=== PATIENT | male | born 1935 | race Caucasian/White ===

== ENCOUNTER 2016-12-06 05:53 | Observation (INO) | payer MEDICARE ==
--- NOTE | ~2016-12-06 | HP ---
History And Physical [place] [id number] [place]. [address] NAME: SALO NAGY JR : 34 STATUS : ADM Efrem PAT#: [id number] AGE: 81 ADM/REG DATE : 12/06/16 MR#: [id number] REPORT SERV DATE: 12/06/16 DICTATED BY: DIVYA WHELAN DATE: 12/06/16 REPORT STATUS : Draft TRANSCRIBED BY: MODJada DATE: 12/06/16 DATE OF ADMISSION: 12/06/2016 MAINTENANCE AND CUSTODIAN SUPERVISOR: Rizwan Sharif M.D. NEPHROLOGY: Jasvir Bell M.D. CHIEF COMPLAINT: Chest pain and bilateral arm pain. HISTORY OF PRESENT ILLNESS: A very pleasant 81-year-old white gentleman with known history of CAD, status post history of CT and CABG x4 with a 4/4 vein grafts patent by cath on 2012. The patient also has ischemic cardiomyopathy with most recent EF of 30% and AICD in place for episode of VT, VFib, on sotalol. The patient states that this morning around 0100 hours, he awoke with some left-sided sharp chest pain that radiated to both of his arms. He reports two to three events occurring this morning and eventually resolved with two sublingual nitroglycerin. He describes the chest pain as "sharp and transient in nature." He states his face felt "tight" and his arms felt "warm." He denies any change in his shortness of breath, which is chronic and no change from his baseline. Denies nausea, diaphoresis, dizziness, or belching. At its most intense, he rated the chest pain an 8/10. At the time of interview in the [facility], he rates it a 3/10 and states it lasted "seconds in duration." He did have hamburger and raw onion for dinner last night. The patient confirms a personal history of one heart attack. Denies history of stroke, DVT, or pulmonary embolus. The patient was seen at [facility] on 09/2016 for a bout of pneumonia. Denies any palpitations. No shocks delivered from his AICD. No syncopal episodes. Denies PND or orthopnea. Of note, the patient is in chronic atrial fibrillation, followed at [facility] for INR most recently at 1.6 per patient's report with a recent increase in his Jantoven to 5 mg daily two weeks ago. The patient states he has an INR check this coming Wednesday, which will be changed to his followup visit. The patient recently was seen by Nephrology and the patient reports that his carvedilol was decreased to 6.25 twice daily due to hypotension. He reports his systolic readings have been 95-106 and he feels better on the reduced dose of carvedilol. PAST MEDICAL HISTORY: 1. CAD. a. History of CT. b. ICM, EF 30% by echo, 09/2016. c. VFib, ventricular tachycardia with AICD. d. [place] [address] Meadows with 4/4 grafts patent by cath, 2012. 2. Hypertension. 3. Dyslipidemia. 4. AODM. History And Physical [address] [address] NAME: SALO NAGY JR : 34 STATUS : ADM Efrem PAT#: [id number] AGE: 81 ADM/REG DATE : 12/06/16 MR#: [id number] REPORT SERV DATE: 12/06/16 DICTATED BY: DIVYA WHELAN DATE: 12/06/16 REPORT STATUS : Draft TRANSCRIBED BY: SHANELLE DATE: 12/06/16 5. Chronic atrial fibrillation, on sotalol and Coumadin. 6. Sleep apnea, compliant with BiPAP. 7. COPD. 8. CKD stage 4, followed by [facility]. 9. Chronic systolic and diastolic heart failure, on Bumex. 10.Remote tobacco abuse. 11.GERD. PAST SURGICAL HISTORY: 1. CABG x4 in 1998. 2. AICD in 2013 for VFib, ventricular tachycardia. 3. Right total knee replacement. 4. Cholecystectomy. 5. Cervical neck surgery. 6. Right rotator cuff. SOCIAL HISTORY: He is . One son present at bedside. He is retired. Does not have a structured exercise routine. Quit smoking 40 years ago. Prior to that, smoked for approximately 20-30 years. Denies alcohol or illicits. FAMILY HISTORY: Mother at the age of 82 with a history of "heart problems." Father with a heart attack in his 50s, at the age of 67. Two brothers of heart attacks at 50 and 53. REVIEW OF SYSTEMS: A fourteen-point review of systems performed, significant for HPI including home systolic blood pressure of 95-110 and home blood sugar of 100. The patient uses 3 L nasal cannula with activity and compliant with BiPAP and 3 L nasal cannula at night. ALLERGIES: PENICILLIN, RASH; TETANUS VACCINE, RASH; MORPHINE, NAUSEA AND VOMITING. HOME MEDICINES: Zyloprim 100 mg daily, aspirin 81 mg daily, Bumex 1 mg twice daily, carvedilol 6.25 mg twice daily, vitamin D 1000 units daily, vitamin B12 1000 mg daily, Glucotrol 10 mg twice daily, isosorbide dinitrate 30 mg daily, Dulera two puffs twice daily, Protonix 40 mg daily, pravastatin 20 mg daily, Zantac 75 mg twice daily, sotalol 40 mg twice daily, Flomax 0.4 mg twice daily, and Jantoven 5 mg nightly. PHYSICAL EXAMINATION: VITAL SIGNS: Blood pressure 145/88, pulse 103, respirations 26, temperature 98.1, O2 saturation 96% on 3 L. Height 6 feet 1 inch, weight 259 pounds. BMI 34. GENERAL: Cooperative, in no apparent distress. HEENT: Pupils 2 mm, sclerae nonicteric. Nares patent. Moist mucous membranes. No xanthelasma. NECK: Trachea midline, no thyromegaly. No JVD. No bruits. LYMPH: No cervical lymphadenopathy. No supraclavicular lymphadenopathy. RESPIRATORY: Diminished left base. Otherwise, clear. CARDIOVASCULAR: Irregularly irregular rate with a variable S1 and S2. History And Physical [address] [address] NAME: SALO NAGY : 34 STATUS : ADM Efrem PAT#: [id number] AGE: 81 ADM/REG DATE : 12/06/16 MR#: [id number] REPORT SERV DATE: 12/06/16 DICTATED BY: DIVYA WHELAN DATE: 12/06/16 REPORT STATUS : Draft TRANSCRIBED BY: SHANELLE DATE: 12/06/16 EXTREMITIES: Trace ankle edema, right greater than left. ABDOMEN: Soft, nontender, nondistended, normal bowel sounds auscultated throughout. No organomegaly. SKIN: Warm, dry extremities. No pallor, or cyanosis. PSYCHIATRIC: Appropriate affect. Alert, oriented x3. LABORATORY DATA: Troponin 0.02 and 0.03, potassium 4.2, BUN 28, creatinine 2.23 (baseline 2.6). Glucose 136, magnesium 1.7. WBC 7.3, hemoglobin 10.2, hematocrit 31.6, and platelet count 180,000. PT 18.0. INR 1.5. EKG, atrial fibrillation with PVC (poor quality baseline tracing). Echo, 09/2015: EF 30%. Dilated left chambers. Dilated left atrium. Mild MR and TR. Mild aortic stenosis. MPI, 04/2015: No ischemia, fixed inferior and inferolateral defect, EF 31%. Cath, 03/2013 (Negus): Three-vessel craig CAD with 4/4 vein grafts patent, EF 30%. ASSESSMENT AND PLAN: 1. Chest pain in patient with multiple risk factors. Second troponin, negative. Electrocardiogram appears stable with no ST elevation. The patient will be held n.p.o. after midnight tonight for myocardial perfusion imaging in the morning and discharged home with negative study. If anything suggestive of ischemia or further cardiac testing required, a Nephrology consult would be necessary prior to any exposure to dye. The patient will be asked to follow up with primary care physician in one to two weeks and Dr. Sharif in two weeks with an INR check at that time. 2. Coronary artery disease. Continue home medications. Hold Imdur on December 07 for myocardial perfusion imaging and resume after myocardial perfusion imaging. 3. Chronic atrial fibrillation, on sotalol and Jantoven. Continue Jantoven 5 mg daily, a daily PT and INR. Consider increasing dose at discharge, if no arteriogram required and arrange INR check in two weeks with Dr. Sharif's office visit. 4. Hypertension. Monitor blood pressure and continue home medications. 5. Dyslipidemia. Continue statin. 6. Adult-onset diabetes mellitus, level 1 sliding scale correction as warranted. 7. Chronic kidney disease stage 4. Recheck basic metabolic profile in the morning. Nephrology consult if catheterization required. BRITTANY/SHANELLE Divya Whelan, MSN, COAGULATING OPERATOR-BC / [id number] History And Physical [place] [address] [place]. [address] NAME: SALO NAGY JR : 34 STATUS : ADM Eferm PAT#: [id number] AGE: 81 ADM/REG DATE : 12/06/16 MR#: [id number] REPORT SERV DATE: 12/06/16 DICTATED BY: DIVYA WHELAN DATE: 12/06/16 REPORT STATUS : Draft TRANSCRIBED BY: MARGEL DATE: 12/06/16 CC: Divya Whelan, MSN, COAGULATING OPERATOR-BC Mark Jarquin M.D.
[2016-12-06 04:03] LABS: BASOPHILS 0.8 %; BASOPHILS ABSOLUTE 0.06 10/3/uL (0.0-0.16); EOSINOPHILS 0.4 %; EOSINOPHILS ABSOLUTE 0.03 10/3/uL (0.0-0.53); HEMOGLOBIN 10.2 g/dL (13.6-17.8); IMMATURE GRANULOCYTES 0.5 %; IMMATURE GRANULOCYTES ABSOLUTE 0.04 10/3/uL (0.0-0.11); LYMPHOCYTES 28.7 %; LYMPHOCYTES ABSOLUTE 2.11 10/3/uL (0.67-4.30); MEAN CORPUS HGB CONC 32.3 g/dL (32.0-36.0); MEAN CORPUSCULAR HEMOGLOB 30.1 pg (26.0-34.0); MEAN CORPUSCULAR VOLUME 93.2 fL (80-100); MEAN PLATELET VOLUME 9.6 fL (9.2-13.0); MONOCYTES 11.3 %; MONOCYTES ABSOLUTE 0.83 10/3/uL (0.21-1.20); NEUTROPHILS 58.3 %; NEUTROPHILS ABSOLUTE 4.27 10/3/uL (2.02-8.40); RBC DISTRIBUTION WIDTH 15.2 % (12.0-16.0); RED CELL COUNT 3.39 10/6/uL (4.7-6.1)
[2016-12-06 04:08] LABS: ER CBC TAT 0 Hrs 12 Mins; HEMATOCRIT 31.6 % (40.0-51.0); MANUAL DIFF NO %; PLATELET COUNT 180 10/3/uL (150-400); WHITE BLOOD CELLS 7.3 10/3/uL (4.5-10.5)
[2016-12-06 04:18] LABS: CALCIUM, SERUM 8.5 MG/DL (8.5-10.4); CHEST PAIN PROFILE TAT 0 Hrs 22 Mins; CHLORIDE, SERUM 104 MMOL/L (96-112); CO2 (CARBON DIOXIDE) 26 MMOL/L (24-34); POTASSIUM, SERUM 4.2 MMOL/L (3.5-5.3); SODIUM, SERUM 140 MMOL/L (135-148); TROPONIN I 0.02 NG/ML (<0.05)
[2016-12-06 04:22] LABS: BUN (BLOOD UREA NITROGEN) 28 MG/DL (6-23); CREATININE 2.23 MG/DL (0.70-1.30); GFR AFRICAN AMERICAN 31 ML/MIN (>=60); GFR NON AFRICAN AMERICAN 26 ML/MIN (>=60); GLUCOSE, SERUM 136 MG/DL (60-99)
[2016-12-06 04:44] LABS: INTERNATIONAL NORMAL RATI 1.5 UNITS (-); PARTIAL THROMBO TIME 37.7 SEC (22.5-37.2)
[~2016-12-06 05:53] MED LIST: ADOXA PAK1 MG/150 M PO; ASA5GR PO; ASAB PO; ASABAYER PO; ATEN25 PO; ATEN50 PO; BACTROINT TOP; BENTYL10 PO; BETAPACE80 PO; BL FLAX SEED1000 MG OR; BUM1 PO; CLARIT10 PO; COREG12 PO; COREG25 PO; COUMADIN10 MG PO; COUMADIN4 MG PO; CYANO1000T PO; DEMA20 PO; DIOVAN HCT160 MG/25 PO; DULERA 100 MCG/13 GM INH; FERROUS SULF325 M1 PO; FISH-EPA1000 MG PO; FLOMAX4 PO; FLONASE NAS; GLUCOTRO10 PO; GLUCPH PO; HUMI PO; HYDROCHLOROT25 MG PO; IMDUR30 PO; IRON160 MG PO; ISOSORB DIN30 MG PO; ISOSORBIDE PO; JANTOVEN10 MG PO; KLOR-CON M2020 MEQ PO; L40 PO; LEVEMIR SC; LIPITOR10 PO; LOVENOX120 SC; MONODOX100 MG PO; NITROSTAT0.4 MG SL; P10 PO; PRAVAC PO; PREVALITE4 G1 PO; PRILOSEC OTC20 MG PO; PRIN5 PO; PROTONIX PO; PROVHFA INH; PULRESP1 INH; QUESLITE PO; QUESTRAN4 GM PO; SILVADENE1 % TOP; T PO; TAMIFLU PO; VITAMIN D31000 UNIT PO; Z100 PO; ZANTAC 75 PO; ZANTAC150 MG PO; [UNRECOGNIZED DRUG - OTHER]; [UNRECOGNIZED DRUG - OTHER] PO
[2016-12-06] MEDS ORDERED: BUM1 PO (06:00)
[2016-12-06] MEDS ORDERED: Z100 PO (06:00)
[2016-12-06] MEDS ORDERED: COREG12 PO (06:01)
[2016-12-06] MEDS ORDERED: FLOMAX4 PO (06:01)
[2016-12-06] MEDS ORDERED: ZANTAC150 MG PO (06:02)
[2016-12-06] MEDS ORDERED: BETAPACE80 PO (06:02)
[2016-12-06] MEDS ORDERED: JANTOVEN5 MG PO (06:03)
[2016-12-06] MEDS ORDERED: GLUCOTRO10 PO (06:03)
[2016-12-06] MEDS ORDERED: ISOSORB DIN30 MG PO (06:03)
[2016-12-06] MEDS ORDERED: ASAB PO (06:04)
[2016-12-06] MEDS ORDERED: PRAVAC PO (06:04)
[2016-12-06] MEDS ORDERED: VITAMIN B-121000 MC1 PO (06:05)
[2016-12-06] MEDS ORDERED: VITAMIN D31000 UNIT PO (06:05)
[2016-12-06] MEDS ORDERED: DULERA 100 MCG/13 GM INH (06:06)
[2016-12-06] MEDS ORDERED: PROTONIX PO (06:06)
[2016-12-07 04:32] LABS: INTERNATIONAL NORMAL RATI 1.5 UNITS (-); PROTIME (NOT ORD) 18.2 SEC (12.0-14.5)
[2016-12-07 04:41] LABS: BUN (BLOOD UREA NITROGEN) 26 MG/DL (6-23); CALCIUM, SERUM 8.9 MG/DL (8.5-10.4); CHLORIDE, SERUM 106 MMOL/L (96-112); CO2 (CARBON DIOXIDE) 29 MMOL/L (24-34); CREATININE 2.14 MG/DL (0.70-1.30); GFR AFRICAN AMERICAN 32 ML/MIN (>=60); GFR NON AFRICAN AMERICAN 28 ML/MIN (>=60); POTASSIUM, SERUM 4.4 MMOL/L (3.5-5.3); SODIUM, SERUM 142 MMOL/L (135-148)
[2016-12-07 04:44] LABS: GLUCOSE, SERUM 100 MG/DL (60-99)
[2016-12-07] MEDS ORDERED: JANTOVEN1 MG PO (13:03)
[2016-12-07] MEDS ORDERED: NITROSTAT0.4 MG SL (13:04)
[2016-12-25] MEDS ORDERED: CLARIT10 PO (12:32)
== END 2016-12-07 13:30 | disposition home or self-care (01) ==
LOC: ER 05:53 → CDU1 06:13
PROVIDERS: Clinical Nurse Specialist; Hospitalist
DX: R07.9 Chest pain, unspecified (principal); R05 Cough; I25.10 Atherosclerotic heart disease of native coronary artery without angina pectoris; I13.0 Hypertensive heart and chronic kidney disease with heart failure and stage 1 through stage 4 chronic kidney disease, or unspecified chronic kidney disease; E11.22 Type 2 diabetes mellitus with diabetic chronic kidney disease; I50.22 Chronic systolic (congestive) heart failure; E66.9 Obesity, unspecified; I48.2 Chronic atrial fibrillation; E78.5 Hyperlipidemia, unspecified; N18.4 Chronic kidney disease, stage 4 (severe); K21.9 Gastro-esophageal reflux disease without esophagitis; J44.9 Chronic obstructive pulmonary disease, unspecified; I25.2 Old myocardial infarction; M10.9 Gout, unspecified; D64.9 Anemia, unspecified; Z87.891 Personal history of nicotine dependence; Z88.0 Allergy status to penicillin; Z88.5 Allergy status to narcotic agent; Z88.8 Allergy status to other drugs, medicaments and biological substances; Z79.52 Long term (current) use of systemic steroids; Z79.899 Other long term (current) drug therapy; Z82.49 Family history of ischemic heart disease and other diseases of the circulatory system; Z95.810 Presence of automatic (implantable) cardiac defibrillator; Z98.890 Other specified postprocedural states; Z95.1 Presence of aortocoronary bypass graft; Z96.651 Presence of right artificial knee joint; Z90.49 Acquired absence of other specified parts of digestive tract; Z90.89 Acquired absence of other organs; Z68.33 Body mass index [BMI] 33.0-33.9, adult
CPT/HCPCS: 71020; 78452; 80048; 82962; 83735; 84484; 85025; 85610; 85730; 93005; 93017; 94640; 99285; A9270-GY; A9502; G0378; J0153

== ENCOUNTER 2016-12-31 08:18 | Day surgery (SDC) | payer MEDICARE ==
--- NOTE | ~2016-12-31 | EGD ---
EGD REPORT [facility] [address] [address] NAME: SALO NAGY JR : 34 STATUS : [facility]#: [id number] AGE: 81 ADM/REG DATE : 12/31/16 MR#: [id number] REPORT SERV DATE: 12/31/16 DICTATED BY: TAMANNA PEREIRA DATE: 12/31/16 REPORT STATUS : Draft [facility]ANS[facility]ED [facility]: [facility] DATE: 12/31/16 [facility] Patient Name: Salo Nagy Date of : 1935 Attending MD: TAMANNA PEREIRA MD Procedure Date No Time: 12/31/2016 Procedure: Upper GI endoscopy Indications: Iron deficiency anemia Referring MD: ROSA STEWART Medicines: Deep sedation was administered, Sedation Required Anesthesia Staff Assistance Complications: No immediate complications. Estimated blood loss: Minimal. Procedure: Pre-Anesthesia Assessment: - ASA Grade Assessment: IV - A patient with severe systemic disease that is a constant threat to life. After obtaining informed consent, the endoscope was passed under direct vision. Throughout the procedure, the patient's blood pressure, pulse, and oxygen saturations were monitored continuously. The GIF H190 [id number] was introduced through the mouth, and advanced to the third part of duodenum. The upper GI endoscopy was accomplished without difficulty. The patient tolerated the procedure well. Findings: A medium-sized hiatus hernia was present. The examined esophagus was normal. The examined duodenum was normal. Biopsies were taken with a cold forceps for histology. Impression: - Hiatus hernia. - Normal esophagus. - Normal examined duodenum. Biopsied. Recommendation: - Patient has a contact number available for emergencies. The signs and symptoms of potential delayed complications were discussed with the patient. Return to normal activities tomorrow. Written discharge instructions were provided to the patient. - Return to previous diet daily. - Discharge patient to home. - Patient has a contact number available for emergencies. The signs and symptoms of potential delayed complications were discussed with the patient. Return to EGD REPORT [address] [address] NAME: SALO NAGY : 34 STATUS : [facility]#: [id number] AGE: 81 ADM/REG DATE : 12/31/16 MR#: [id number] REPORT SERV DATE: 12/31/16 DICTATED BY: TAMANNA PEREIRA. DATE: 12/31/16 REPORT STATUS : Draft TRANSCRIBED BY: [employer] DATE: 12/31/16 normal activities tomorrow. Written discharge instructions were provided to the patient. - Continue present medications. - Await pathology results. Procedure Code(s): --- Professional --- 62436, Esophagogastroduodenoscopy, flexible, transoral; with biopsy, single or multiple Diagnosis Code(s): --- Professional --- K44.9, Diaphragmatic hernia without obstruction or gangrene D50.9, Iron deficiency anemia, unspecified CPT copyright 2013 [employer]. All rights reserved. The codes documented in this report are preliminary and upon cost accounting analyst review may be revised to meet current compliance requirements. TAMANNA PEREIRA MD 12/31/2016 10:03 AM This report has been signed electronically. Number of Addenda: 0 Note Initiated On: 12/31/2016 9:39 AM Scope Withdrawal Time 0 hours 0 minutes 0 seconds [address] [place] [address]
--- NOTE | ~2016-12-31 | EGD ---
EGD REPORT [facility] [address] [address] NAME: SALO NAGY JR : 34 STATUS : REG [facility]#: [id number] AGE: 81 ADM/REG DATE : 12/31/16 MR#: [id number] REPORT SERV DATE: 12/31/16 DICTATED BY: TAMANNA PEREIRA DATE: 12/31/16 REPORT STATUS : Draft [facility]ANSCRIBED BY: [facility] DATE: 12/31/16 [facility] Center Patient Name: Salo Nagy Date of : 1935 Attending MD: TAMANNA PEREIRA MD Procedure Date No Time: 12/31/2016 Procedure: Colonoscopy Indications: Heme positive stool Referring MD: ROSA STEWART Medicines: Sedation Required Anesthesia Staff Assistance Complications: No immediate complications. Estimated blood loss: Minimal. Procedure: Pre-Anesthesia Assessment: - ASA Grade Assessment: IV - A patient with severe systemic disease that is a constant threat to life. After I obtained informed consent, the scope was passed under direct vision. Throughout the procedure, the patient's blood pressure, pulse, and oxygen saturations were monitored continuously. The PCF [id number] was introduced through the anus and advanced to the cecum, identified by appendiceal orifice and ileocecal valve. The colonoscopy was performed without difficulty. The patient tolerated the procedure well. The quality of the bowel preparation was excellent. The ileocecal valve, appendiceal orifice and rectum were photographed. Findings: A sessile polyp was found in the proximal descending colon. The polyp was 3 mm in size. The polyp was removed with a cold snare. Resection and retrieval were complete. A pedunculated polyp was found in the ascending colon. The polyp was 8 mm in size. The polyp was removed with a hot snare. Resection and retrieval were complete. Two sessile polyps were found in the cecum. The polyps were 3 to 4 mm in size. These polyps were removed with a cold snare. Resection and retrieval were complete. Many small and large-mouthed diverticula were found in the sigmoid colon and in the descending colon. Impression: - One 3 mm polyp in the proximal descending colon. Resected and retrieved. - One 8 mm polyp in the ascending colon. Resected and retrieved. - Two 3 to 4 mm polyps in the cecum. Resected and retrieved. EGD REPORT [address] [place]. [address] NAME: SALO NAGY JR : 34 STATUS : REG [facility]#: [id number] AGE: 81 ADM/REG DATE : 12/31/16 MR#: [id number] REPORT SERV DATE: 12/31/16 DICTATED BY: TAMANNA PEREIRA DATE: 12/31/16 REPORT STATUS : Draft TRANSCRIBED BY: [employer] SERVICES DATE: 12/31/16 - Diverticulosis in the sigmoid colon and in the descending colon. Recommendation: - Continue present medications. - Discharge patient to home. - Patient has a contact number available for emergencies. The signs and symptoms of potential delayed complications were discussed with the patient. Return to normal activities tomorrow. Written discharge instructions were provided to the patient. - Return to previous diet daily. - Patient has a contact number available for emergencies. The signs and symptoms of potential delayed complications were discussed with the patient. Return to normal activities tomorrow. Written discharge instructions were provided to the patient. - Await pathology results. Procedure Code(s): --- Professional --- 85512, Colonoscopy, flexible, proximal to splenic flexure; with removal of tumor(s), polyp(s), or other lesion(s) by snare technique Diagnosis Code(s): --- Professional --- R19.5, Other fecal abnormalities D12.4, Benign neoplasm of descending colon D12.2, Benign neoplasm of ascending colon D12.0, Benign neoplasm of cecum CPT copyright 2013 [employer]. All rights reserved. The codes documented in this report are preliminary and upon continuous vulcanizing machine operator review may be revised to meet current compliance requirements. TAMANNA PEREIRA MD 12/31/2016 10:32 AM This report has been signed electronically. Number of Addenda: 0 Note Initiated On: 12/31/2016 9:46 AM Scope Withdrawal Time 0 hours 18 minutes 12 seconds [address] [address]
[~2016-12-31 08:18] MED LIST changes: +JANTOVEN1 MG PO; +JANTOVEN5 MG PO; +VITAMIN B-121000 MC1 PO
[2016-12-31 09:10] LABS: INTERNATIONAL NORMAL RATI 1.4 UNITS (-)
== END 2016-12-31 23:59 | disposition home or self-care (01) ==
LOC: DMU 08:18
PROVIDERS: Internal Medicine Gastroenterology
PROC: 0DBK8ZZ Excision of Ascending Colon, Via Natural or Artificial Opening Endoscopic (ICD-10-PCS; 2016-12-31)
PROC: 0DB98ZX Excision of Duodenum, Via Natural or Artificial Opening Endoscopic, Diagnostic (ICD-10-PCS; 2016-12-31)
PROC: 0DBM8ZZ Excision of Descending Colon, Via Natural or Artificial Opening Endoscopic (ICD-10-PCS; principal; 2016-12-31 10:30)
PROC: 0DBH8ZZ Excision of Cecum, Via Natural or Artificial Opening Endoscopic (ICD-10-PCS; 2016-12-31 10:30)
DX: D12.0 Benign neoplasm of cecum (principal); D12.2 Benign neoplasm of ascending colon; D12.4 Benign neoplasm of descending colon; K44.9 Diaphragmatic hernia without obstruction or gangrene; D50.9 Iron deficiency anemia, unspecified; H91.90 Unspecified hearing loss, unspecified ear; J44.9 Chronic obstructive pulmonary disease, unspecified; G47.33 Obstructive sleep apnea (adult) (pediatric); E78.00 Pure hypercholesterolemia, unspecified; I11.0 Hypertensive heart disease with heart failure; I50.9 Heart failure, unspecified; I48.91 Unspecified atrial fibrillation; I25.10 Atherosclerotic heart disease of native coronary artery without angina pectoris; I25.5 Ischemic cardiomyopathy; Z88.5 Allergy status to narcotic agent; Z79.899 Other long term (current) drug therapy; Z79.01 Long term (current) use of anticoagulants; Z79.82 Long term (current) use of aspirin; Z88.0 Allergy status to penicillin; Z95.810 Presence of automatic (implantable) cardiac defibrillator; Z88.7 Allergy status to serum and vaccine
CPT/HCPCS: 82962; 85610; 88305